=== PATIENT | male | born 1965 ===

== ENCOUNTER 2018-11-01 07:45 | Emergency (ER) | payer OTHER ==
[~2018-11-01] VITALS: Ht 180.3 cm; Wt 106.6 kg
[2018-11-01] MEDS ORDERED: TRANXENE T-TAB7.5 MG (07:59)
[2018-11-01] MEDS ORDERED: SEROQUEL XR50 MG (07:59)
[2018-11-01] MEDS ORDERED: AVAPRO150 MG (07:59)
[2018-11-01] MEDS ORDERED: RESTORIL30 M1 (07:59)
== END 2018-11-01 19:20 | disposition home or self-care (01) ==
LOC: ER 07:45
DX: N23 Unspecified renal colic (principal); R10.32 Left lower quadrant pain